=== PATIENT | male | born 1995 | race Caucasian/White ===

== ENCOUNTER 2019-07-19 21:12 | Emergency (ER) | payer BC, OTHER ==
[~2019-07-19] VITALS: Ht 180 cm; Wt 112.7 kg
[2019-07-19] MEDS ORDERED: LISI10TA2 PO (21:26)
[2019-07-19 21:47] LABS: BASOPHILS # (AUTO) 0.1 10^3/uL (0.0-0.1); BASOPHILS % (AUTO) 1 % (0-10); EOSINOPHILS # (AUTO) 1.7 10^3/uL (0.0-0.3); EOSINOPHILS % (AUTO) 13 % (0-10); HEMATOCRIT 45 % (40-54); HEMOGLOBIN 16.4 G/DL (13.3-17.7); LYMPHOCYTES # (AUTO) 2.5 X 10^3 (1.0-4.0); LYMPHOCYTES % (AUTO) 19 % (12-44); MEAN CORPUSCULAR HEMOGLOBIN 33 PG (25-34); MEAN CORPUSCULAR HGB CONC 36 G/DL (32-36); MEAN CORPUSCULAR VOLUME 92 FL (80-99); MEAN PLATELET VOLUME 10.7 FL (7.4-10.4); MONOCYTES # (AUTO) 1.2 X 10^3 (0.0-1.0); MONOCYTES % (AUTO) 10 % (0-12); NEUTROPHILS # (AUTO) 7.5 X 10^3 (1.8-7.8); NEUTROPHILS % (AUTO) 58 % (42-75); PLATELET COUNT 269 10^3/uL (130-400); RED CELL DISTRIBUTION WIDTH 13.7 % (10.0-14.5)
[2019-07-19] MEDS ORDERED: LACTATED RINGERS 1,000 ML IV ONE (21:48)
[2019-07-19 22:00] LABS: ALANINE AMINOTRANSFERASE 23 U/L (0-55); ALBUMIN 4.5 GM/DL (3.2-4.5); ALKALINE PHOSPHATASE 77 U/L (40-136); AMYLASE 86 U/L (25-125); BILIRUBIN,TOTAL 0.5 MG/DL (0.1-1.0); BUN/CREATININE RATIO 15; CALCIUM 9.5 MG/DL (8.5-10.1); CARBON DIOXIDE 22 MMOL/L (21-32); CHLORIDE 106 MMOL/L (98-107); CREATININE SERUM 1.03 MG/DL (0.60-1.30); GFR ESTIMATED > 60; GLUCOSE 83 MG/DL (70-105); LIPASE 56 U/L (8-78); MAGNESIUM 1.9 MG/DL (1.6-2.4); POTASSIUM 4.2 MMOL/L (3.6-5.0); SODIUM 138 MMOL/L (135-145); TOTAL PROTEIN 7.9 GM/DL (6.4-8.2)
[2019-07-19] MEDS ORDERED: ONDANSETRON 4 MG/2 ML (SDV) Z0FRAN IVP ONE (22:00)
[2019-07-19] MEDS ORDERED: FAMOTIDINE 20MG/2ML IV (PEPCID) IVP ONE (22:15)
[2019-07-19] MEDS ORDERED: diphenhydrAMINE 50 MG/ML INJ (BENADRYL) IVP ONE (22:15)
[2019-07-19] MEDS ORDERED: methylPREDNISolone 125 MG (Solu-MEDROL) VIAL IVP ONE (22:15)
[2019-07-19 22:35] LABS: BILIRUBIN,URINE NEGATIVE (NEGATIVE); CLARITY,URINE CLEAR; COLOR,URINE YELLOW; GLUCOSE, URINE (UA) NEGATIVE (NEGATIVE); KETONES,URINE NEGATIVE (NEGATIVE); LEUKOCYTE ESTERASE ,URINE NEGATIVE (NEGATIVE); NITRITE,URINE NEGATIVE (NEGATIVE); PH,URINE 6.5 (5-9); PROTEIN,URINE NEGATIVE (NEGATIVE); UROBILINOGEN,URINE NORMAL (NORMAL)
[2019-07-19 22:36] LABS: AMPHETAMINE SCREEN, URINE NEGATIVE (NEGATIVE); BARBITURATE SCREEN URINE NEGATIVE (NEGATIVE); BENZODIAZEPINES SCREEN URINE NEGATIVE (NEGATIVE); CANNABINOID SCREEN, URINE NEGATIVE (NEGATIVE); COCAINE SCREEN URINE NEGATIVE (NEGATIVE); METHADONE STAT NEGATIVE (NEGATIVE); METHAMPHETAMINE SCREEN URINE S NEGATIVE (NEGATIVE); OPIATE SCREEN URINE NEGATIVE (NEGATIVE); OXYCODONE STAT NEGATIVE (NEGATIVE); PROPOXYPHENE STAT NEGATIVE (NEGATIVE); TRICYCLIC ANTIDEPRESSANTS SCRE NEGATIVE (NEGATIVE)
[2019-07-19 22:43] LABS: BACTERIA,URINE NEGATIVE /HPF; SQUAMOUS EPITHELIAL CELL,UR RARE /HPF
[2019-07-19] MEDS ORDERED: IOHEXOL 350 MG/ML 100 ML (OMNIPAQUE 350) VIAL IV ONE (23:15)
[2019-07-19] MEDS ORDERED: NS 100 ML (IVPB) BAG IV ONE (23:15)
--- NOTE | 2019-07-19 23:55 | ED General ---
General Chief Complaint: Cardiac/General Problems Stated Complaint: CHEST PAINS LOWER BACK PAIN Nursing Triage Note: Patient reports chest pain starting after eating shrimp and chicken. Patient reports emesis x 1. Patient reports that he felt his heart was racing with the pain Nursing Sepsis Screen: No Definite Risk Source of Information: Patient (VERY VAGUE AND SOMEWHAT DIFFICULT HISTORIAN) History of Present Illness Date Seen by Provider: Jul 19, 2019 Time Seen by Provider: 21:15 Initial Comments PT ARRIVES VIA POV STATES HE HAD BEEN OUT TO EAT--ATE CHICKEN AND SHRIPM-, AND HAD JUST FINISHED EATING AND HIS HEART STARTED BEATING FAST, HIS CHEST STARTED HURTING, THEN HIS LOW BACK STARTED HURTING + NAUSEA AND VOMITED X 1 NO ABDOMINAL PAIN NO DIARRHEA--HAD NORMAL BM TODAY NO PROBLEMS URINATING NO SHORTNESS OF BREATH + SWEATS NO FEVER, NO COUGH OR RECENT ILLNESS SYMPTOMS BEGAN JUST PRIOR TO ARRIVAL AND CAME STRAIGHT HERE NO PAIN NOW, STATES IT STILL FEELS LIKE HIS HEART IS RACING--HEART RATE IS IN LOW 80'S AND IS IN SINUS RHYTHM NO NAUSEA NOW NO SWEATS NOW PT STATES HE HAS HAD THIS BEFORE HAS HISTORY OF HTN AND IS ON LISINOPRIL NO DOSE CHANGES OR MISSED DOSES OF MEDICATIONS PT STATES HE WAS DX WITH "AORTIC VALVE PROBLEM" 04/29/19. HAS SEEN UNKNOWN INDEX CLERK AT [facility] ONCE, BUT HAS NOT FOLLOWED UP SINCE THEN--MANY MONTHS AGO STATES HE HAS BEEN UNDER ALOT OF STRESS, WORKS MAINTENANCE AT [employer]. PCP: KRISTIN HAMMOND AT DR. BENTLEY[facility] OFFICE IN [place], [place] PT IS FROM [place], IS HERE VISITING HIS GIRLFRIEND Allergies and Home Medications Allergies Coded Allergies: iodine (Verified Allergy, Unknown, 07/19/19) Home Medications Lisinopril 10 Mg Tablet, 10 MG PO DAILY, (Reported) Patient Home Medication List Home Medication List Reviewed: Yes Review of Systems Review of Systems Constitutional: see HPI, fever Respiratory: no symptoms reported; No cough, No short of breath Cardiovascular: see HPI, chest pain; No edema; palpitations; No syncope, No vascular heart diseas Gastrointestinal: see HPI; No abdominal pain; nausea, vomiting Genitourinary: no symptoms reported Musculoskeletal: see HPI, back pain Skin: no symptoms reported Psychiatric/Neurological: No Symptoms Reported Hematologic/Lymphatic: No Symptoms Reported Immunological/Allergic: no symptoms reported Past Mlytxzl-Vvrlse-Ogwzrz Hx Patient Social History Alcohol Use: Occasionally Uses Recreational Drug Use: No Smoking Status: Never a Smoker Recent Foreign Travel: No Contact w/Someone Who Travel: No Recent Infectious Disease Expo: No Physical Abuse: No Sexual Abuse: No Mistreated: No Fear: No Past Medical History Surgeries: No Respiratory: No Cardiac: Yes ("AORTIC VALVE PROBLEM" --PER PT, STATES DX 04/29/19) Hypertension, Valvular Heart Disease Neurological: No Genitourinary: No Gastrointestinal: No Musculoskeletal: No Endocrine: Yes (OBESITY) HEENT: No Cancer: No Psychosocial: No Integumentary: No Blood Disorders: No Physical Exam Vital Signs Vital Signs - First Documented 07/19/19 21:20 Temp 38.0 Pulse 94 Resp 20 B/P (MAP) 147/101 (116) Pulse Ox 99 Capillary Refill : Less Than 3 Seconds Height, Weight, BMI Height: '" Weight: lbs. oz. kg; 34.00 BMI Method: General Appearance: Obese, Other (FLAT AFFECT. ) HEENT: PERRL/EOMI Neck: Full Range of Motion, Normal Inspection, Non Tender, Supple; No Carotid Bruit, No JVD Respiratory: Normal Breath Sounds, No Accessory Muscle Use, No Respiratory Distress Cardiovascular: Regular Rate, Rhythm, No Edema, No JVD, No Murmur, Normal Peripheral Pulses Gastrointestinal: Normal Bowel Sounds, Soft, Tenderness (MILD EPIGASTRIC TENDERNESS) Back: Normal Inspection, No CVA Tenderness, No Vertebral Tenderness Extremity: Normal Capillary Refill, Normal Inspection, Normal Range of Motion, Non Tender, No Calf Tenderness, No Pedal Edema Neurologic/Psychiatric: Alert, Oriented x3, No Motor/Sensory Deficits, publicist II- XII Norm as Tested Skin: Normal Color, Warm/Dry Progress/Results/Core Measures Suspected Sepsis Recent Fever Within 48 Hours: No Infection Criteria Present: None New/Unexplained Altered Menta: No Sepsis Screen: No Definite Risk SIRS Temperature: Pulse: 94 Respiratory Rate: 20 Laboratory Tests 07/19/19 21:20: White Blood Count 13.0H Blood Pressure 147 /101 Mean: 116 Laboratory Tests 07/19/19 21:20: Creatinine 1.03, Platelet Count 269, Total Bilirubin 0.5 Results/Orders Lab Results Laboratory Tests Test 07/19/19 21:20 07/19/19 22:16 Range/Units White Blood Count 13.0 H 4.3-11.0 10^3/uL Red Blood Count 4.93 4.35-5.85 10^6/uL Hemoglobin 16.4 13.3-17.7 G/DL Hematocrit 45 40-54 % Mean Corpuscular Volume 92 80-99 FL Mean Corpuscular Hemoglobin 33 25-34 PG Mean Corpuscular Hemoglobin Concent 36 32-36 G/DL Red Cell Distribution Width 13.7 10.0-14.5 % Platelet Count 269 130-400 10^3/uL Mean Platelet Volume 10.7 H 7.4-10.4 FL Neutrophils (%) (Auto) 58 42-75 % Lymphocytes (%) (Auto) 19 12-44 % Monocytes (%) (Auto) 10 0-12 % Eosinophils (%) (Auto) 13 H 0-10 % Basophils (%) (Auto) 1 0-10 % Neutrophils # (Auto) 7.5 1.8-7.8 X 10^3 Lymphocytes # (Auto) 2.5 1.0-4.0 X 10^3 Monocytes # (Auto) 1.2 H 0.0-1.0 X 10^3 Eosinophils # (Auto) 1.7 H 0.0-0.3 10^3/uL Basophils # (Auto) 0.1 0.0-0.1 10^3/uL Sodium Level 138 135-145 MMOL/L Potassium Level 4.2 3.6-5.0 MMOL/L Chloride Level 106 98-107 MMOL/L Carbon Dioxide Level 22 21-32 MMOL/L Anion Gap 10 5-14 MMOL/L Blood Urea Nitrogen 15 7-18 MG/DL Creatinine 1.03 0.60-1.30 MG/DL Estimat Glomerular Filtration Rate > 60 BUN/Creatinine Ratio 15 Glucose Level 83 70-105 MG/DL Calcium Level 9.5 8.5-10.1 MG/DL Corrected Calcium 9.1 8.5-10.1 MG/DL Magnesium Level 1.9 1.6-2.4 MG/DL Total Bilirubin 0.5 0.1-1.0 MG/DL Aspartate Amino Transf (AST/SGOT) 20 5-34 U/L Alanine Aminotransferase (ALT/SGPT) 23 0-55 U/L Alkaline Phosphatase 77 40-136 U/L Troponin I < 0.028 <0.028 NG/ML Total Protein 7.9 6.4-8.2 GM/DL Albumin 4.5 3.2-4.5 GM/DL Amylase Level 86 25-125 U/L Lipase 56 8-78 U/L Serum Alcohol < 10 <10 MG/DL Urine Color YELLOW Urine Clarity CLEAR Urine pH 6.5 5-9 Urine Specific [place] 1.010 L 1.016-1.022 Urine Protein NEGATIVE NEGATIVE Urine Glucose (UA) NEGATIVE NEGATIVE Urine Ketones NEGATIVE NEGATIVE Urine Nitrite NEGATIVE NEGATIVE Urine Bilirubin NEGATIVE NEGATIVE Urine Urobilinogen NORMAL NORMAL MG/DL Urine Leukocyte Esterase NEGATIVE NEGATIVE Urine RBC (Auto) NEGATIVE NEGATIVE Urine RBC NONE /HPF Urine WBC NONE /HPF Urine Squamous Epithelial Cells RARE /HPF Urine Crystals NONE /LPF Urine Bacteria NEGATIVE /HPF Urine Casts NONE /LPF Urine Mucus NEGATIVE /LPF Urine Culture Indicated NO Urine Opiates Screen NEGATIVE NEGATIVE Urine Oxycodone Screen NEGATIVE NEGATIVE Urine Methadone Screen NEGATIVE NEGATIVE Urine Propoxyphene Screen NEGATIVE NEGATIVE Urine Barbiturates Screen NEGATIVE NEGATIVE Ur Tricyclic Antidepressants Screen NEGATIVE NEGATIVE Urine Phencyclidine Screen NEGATIVE NEGATIVE Urine Amphetamines Screen NEGATIVE NEGATIVE Urine Methamphetamines Screen NEGATIVE NEGATIVE Urine Benzodiazepines Screen NEGATIVE NEGATIVE Urine Cocaine Screen NEGATIVE NEGATIVE Urine Cannabinoids Screen NEGATIVE NEGATIVE My Orders Orders - MENG MCKEON DO Ed Iv/Invasive Line Start (07/19/19 21:37) Ekg Tracing (07/19/19 21:37) Monitor-Rhythm Ecg Trace Only (07/19/19 21:37) Alcohol (07/19/19 21:37) Amylase (07/19/19 21:37) Cbc With Automated Diff (07/19/19 21:37) Comprehensive Metabolic Panel (07/19/19 21:37) Drug Screen Stat (Urine) (07/19/19 21:37) Lipase (07/19/19 21:37) Magnesium (07/19/19 21:37) Ua Culture If Indicated (07/19/19 21:37) Troponin I (07/19/19 21:37) Ondansetron Injection (Zofran Injectio (07/19/19 22:00) Ed Iv/Invasive Line Start (07/19/19 21:48) Lactated Ringers (Lr 1000 Ml Iv Solution (07/19/19 21:48) Ct Janine Chest/Noang Abd-Pelv W (07/19/19 22:06) Famotidine Injection (Pepcid Injection) (07/19/19 22:15) Methylprednisolone Sod Succ (Solu-Medrol (07/19/19 22:15) Diphenhydramine Injection (Benadryl Inje (07/19/19 22:15) Iohexol Injection (Omnipaque 350 Mg/Ml 1 (07/19/19 23:15) Ns (Ivpb) (Sodium Chloride 0.9% Ivpb Bag (07/19/19 23:15) Medications Given in ED Vital Signs/I&O Capillary Refill : Less Than 3 Seconds Blood Pressure Mean: 116 Progress Note : Progress Note PT STATES HE IS ALLERGIC TO IODINE--PRETREATED WITH BENADRYL, SOLU-MEDROL AND PEPCID--NO REACTION FROM IV CONTRAST SLEPT THROUGH REMAINDER OF ER STAY NO COMPLAINTS FOR ENTIRE ER STAY ECG Initial ECG Impression Date: Jul 19, 2019 Initial ECG Impression Time: 21:18 Initial ECG Rate: 90 Initial ECG Rhythm: Normal Sinus Diagnostic Imaging Comments CXR--NO ACUTE PROCESS, PENDING RADIOLOGIST REVIEW CT CHEST ANGIOGRAM/ ABDOMEN AND PELVIS--NO P.E. OR OTHER ACUTE PROCESS--PER [facility] VIA FAX AT 1316 Reviewed: Reviewed by Me Departure Impression Primary Impression: Palpitations Additional Impressions: Chest pain Low back pain Anxiety HTN (hypertension) Disposition: 01 HOME, SELF-CARE Condition: Improved Departure-Patient Inst. Patient Instructions: Chest Pain (DC), Anxiety, Adult (DC), Palpitations (DC), Low Back Pain (DC) Add. Discharge Instructions: HOME, REST TAKE YOUR MEDICATIONS PRESCRIBED FOLLOW UP WITH YOUR INDEX CLERK NEXT WEEK GO TO NEAREST ER IF SYMPTOMS RETURN All discharge instructions reviewed with patient and/or family. Voiced understanding. MENG MCKEON DO Jul 19, 2019 23:55
[2019-07-19 23:58] VITALS: BP 133/74
--- NOTE | 2019-07-20 06:38 | Diagnostic Imaging Report ---
Indication: Chest and abdominal pain. TECHNIQUE: Contiguous axial images were obtained through the chest, abdomen, and pelvis during the intravenous administration of contrast. Delayed images were obtained through the abdomen and pelvis. MIP reconstructions were created and evaluated. Comparison: None. Discussion: CHEST: No pulmonary embolus identified. The thoracic aorta is normal in caliber and configuration. Normal heart size. No pleural or pericardial fluid. No pathologically enlarged nodes are identified. No focal consolidation or suspicious pulmonary lesion. No osseous abnormality identified. Abdomen/pelvis: The liver, gallbladder, pancreas, stomach, spleen, adrenal glands, kidneys, bladder, and prostate are unremarkable. No obstruction, pneumatosis, pneumoperitoneum. The appendix is normal. The aorta is normal in caliber with no aneurysm or dissection identified. No osseous abnormality. Impression: 1. The aorta is unremarkable. No pulmonary embolus identified. No other acute abnormality identified. 2. Agree with preliminary report. Dictated by: Dictated on workstation # [id number]
== END 2019-07-19 23:59 | disposition home or self-care (01) ==
LOC: ER 21:15
DX: R07.9 Chest pain, unspecified (principal); F41.9 Anxiety disorder, unspecified; M54.5 Low back pain; I10 Essential (primary) hypertension; E66.9 Obesity, unspecified; Z88.8 Allergy status to other drugs, medicaments and biological substances; Z68.34 Body mass index [BMI] 34.0-34.9, adult
CPT/HCPCS: 36415; 71275; 74177; 80053; 80306; 80320; 81000; 82150; 83690; 83735; 84484; 85025; 93005